=== PATIENT | female | born 1935 | race Caucasian/White ===

== ENCOUNTER → 2016-06-28 | Outpatient (CLI) | payer OTHER ==
--- NOTE | 2016-06-28 17:13 | DI ---
HISTORY: Right leg swelling and redness. TECHNIQUE: Duplex Doppler examination of the deep veins of the lower extremity was performed with co mpression. FINDINGS: Spectral Doppler demonstrates normal respiratory variation. There is an appropriate respo nse to compression maneuvers. There is no evidence of intraluminal thrombus. IMPRESSION: 1. No evidence of deep venous thrombosis.
== END ==
LOC: US 16:04
PROVIDERS: ATTEND Nurse Practitioner
DX: M79.604 Pain in right leg (principal); M79.89 Other specified soft tissue disorders
CPT/HCPCS: 93971

== ENCOUNTER → 2016-08-08 | Outpatient (CLI) | payer OTHER | LOC: MMPC 10:00 | PROVIDERS: ATTEND Podiatrist Foot & Ankle Surgery | DX: E11.40 Type 2 diabetes mellitus with diabetic neuropathy, unspecified (principal); I73.9 Peripheral vascular disease, unspecified | CPT/HCPCS: 11719; G0463 ==

== ENCOUNTER 2016-08-24 19:34 | Emergency (ER) | payer OTHER ==
[2016-08-24] MEDS ORDERED: Sodium Chloride 0.9% 1,000 ML PRIMARY IV ONE ×2 (20:03→21:25)
[2016-08-24] MEDS ORDERED: NORMAL SALINE 10 ML SYRINGE FLUSH IVP PRN (20:03)
--- NOTE | 2016-08-24 20:09 | EKG ---
[address] [address] Measurements Intervals [place] Rate: 77 P: GA: 0 QRS: 71 QRSD: 83 T: 48 QT: 370 QTc: 402 Interpretive Statements ATRIAL FIBRILLATION ST CHANGES OF EARLY REPOLARIZATION ABNORMAL RHYTHM ECG Compared to ECG 04/20/2016 20:04:24 No significant changes Electronically Signed On 08-25-16 11:43:02 MDT by Ted Dale [email or web address]
[2016-08-24 20:13] LABS: BASOPHILS # (AUTO) 0.02 10*3/UL; BASOPHILS % (AUTO) 0.3 % (0-1); EOSINOPHILS # (AUTO) 0.02 10*3/UL; EOSINOPHILS % (AUTO) 0.3 % (0-8); HEMATOCRIT 37.1 % (37.0-47.0); HEMOGLOBIN 11.9 g/dL (12.0-16.0); MEAN CORPUSCULAR HEMOGLOBIN 29.4 PG (27-31); MEAN CORPUSCULAR HGB CONC 32.1 g/dL (33-37); MEAN CORPUSCULAR VOLUME 91.6 FL (81-99); MEAN PLATELET VOLUME 10.5 FL (7.4-12.2); MONOCYTES # (AUTO) 0.41 10*3/UL (0.3-0.8); MONOCYTES % (AUTO) 6.3 % (5-15); NEUTROPHILS # (AUTO) 5.05 10*3/UL; NEUTROPHILS % (AUTO) 77.5 % (50-80); RED BLOOD COUNT 4.05 10^6/uL (4.20-5.40)
[2016-08-24 20:30] LABS: CREATINE KINASE MB 4.23 NG/ML (0.00-5.00)
[2016-08-24 20:42] VITALS: RESP 16; TEMP 99.1
[2016-08-24 20:43] LABS: PLATELET MORPHOLOGY COMMENT NORMAL MORPHOLOGY (NORM); RBC MORPHOLOGY COMMENT NORMAL MORPHOLOGY (NORM); TROPONIN I < 0.012 ng/mL (< 0.040); WBC MORPHOLOGY COMMENT NORMAL MORPHOLOGY (NORM)
[2016-08-24 20:48] LABS: VENOUS PH 7.49 (7.32-7.42)
[2016-08-24 20:49] LABS: VENOUS PCO2 28.8 mmHg (45-55)
[2016-08-24 20:55] LABS: CALCIUM 9.2 mg/dL (8.7-10.7); MAGNESIUM 1.6 mg/dL (1.6-2.4); SERUM ALBUMIN 3.6 g/dL (3.5-4.8)
--- NOTE | 2016-08-24 21:50 | DI ---
HISTORY: Weakness and hypotension. COMPARISON: Comparison exam from 2009 is not very helpful. FINDINGS: The cardiac silhouette is slightly enlarged, and this is larger compared to prior exam. There is prominence of the central vasculature, and this is more prominent compared to prior exam. There is no lobar consolidation. Bibasal opacities suggest atelectasis although small effusion is no t excluded. There is kyphosis. IMPRESSION: 1. Cardiomegaly and prominent central vasculature. The findings are more prominent over the interva l.
--- NOTE | 2016-08-24 21:51 | DI ---
HISTORY: Blunt trauma to left forehead. Bruising. No reported loss of consciousness. TECHNIQUE: Unenhanced images of the brain were obtained and submitted for interpretation. FINDINGS: There is senescent change with atrophy. There is a hypodensity in the right occipital lobe reminiscent of a chronic to subacute infarct. Rec ommend correlation with MRI. There is opacification of the left maxillary sinus, which would benefit from dedicated imaging. The rest of the mastoid air cells, and paranasal sinuses are well-aerated. The basal cisterns are not effaced. There is no intracranial hemorrhage, mass effect, hydrocephalus, or significant midline shift. There is a questionable small hematoma overlying the left frontal bone. IMPRESSION: 1. No intracranial hemorrhage. MRI is recommended.
[2016-08-24 22:00] LABS: BILIRUBIN,URINE NEGATIVE (NEG); COLOR,URINE YELLOW; GLUCOSE, URINE (UA) NEGATIVE (NEG); NITRATE,URINE POSITIVE (NEG); OCCULT BLOOD,URINE NEGATIVE (NEG); PH,URINE 5.5 (5.0-8.5); PROTEIN,URINE TRACE mg/dl (NEG); UROBILINOGEN,URINE 0.2 EU/dL (0.2)
[2016-08-24 22:04] LABS: CLARITY,URINE CLEAR (CLEAR)
[2016-08-24 22:05] LABS: BACTERIA,URINE MANY; RBC,URINE 0 /hpf; URINE CASTS RARE; URINE SAMPLE TYPE CATH SPECIMEN
[2016-08-24] MEDS ORDERED: CIPROFLOXACIN 500 MG TABLET PO ONE ×2 (22:26→22:29)
[2016-08-24] MEDS ORDERED: cefTRIAXone Inj 1 GM in Sodium Chloride 0.9% 100 ML IV ONE ×2 (22:26→22:28)
--- NOTE | 2016-08-25 03:43 | PDOC ---
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 She she also has dementia. She has a DO NOT RESUSCITATE CODE STATUS.) Nurse's Notes Reviewed & Considered: Yes EMS Report Reviewed & Considered: Verbal - History of Present Illness Initial Comment: The patient is a 82 year old female who is a resident of the [facility]. Nursing staff took the patient's blood pressure tonight and found it to be low. Nursing staff then called the family, the patient's son and daughter, who asked that the patient be brought to the emergency room for evaluation. Patient has not had any fevers or chills. She has not complained of any head chest or abdominal pain. No GI or symptoms. Patient did strike her left forehead on some furniture in her room a few days ago and patient does have a contusion to her left frontal area. Family states that the patient has not been eating or drinking well at the skilled nursing and that she has periods of combativeness and confusion. Have you received a tetanus shot in the past 10 years?: Yes Body Location Affected: REPORTS: Head (Contusion left forehead), Other (Low blood pressure per nursing staff.) Timing: REPORTS: Intermittent Duration: <24 hours Severity: Moderate Quality: REPORTS: Other (No apparent pain anywhere) Context: REPORTS: Recent Trauma (Left forehead) Modifying Factors: improves with: Nothing Similar Symptoms Previously: Yes Recent Care Received: REPORTS: Recently Seen (As above; CVA March 2016), Treated by MD, Hospitalized Any Prior Injuries Related to Current Complaint?: Yes (possibly recent head trauma as above) - Patient Home Medications Home Medications: Home Medications Allopurinol 1 tab ORAL QD #90 tab 04/15/16 Cholecalciferol (Vitamin D3) [Vitamin D3] 1 cap PO QD #90 cap 04/15/16 Lisinopril 1 tab PO BID #180 tab 04/15/16 Lovastatin 1 tab ORAL QHS #90 tab 04/15/16 Metoprolol Tartrate 1 tab ORAL BID #180 tab 04/15/16 Amlodipine Besylate [Norvasc] 10 mg PO DAILY tab 05/08/16 Apixaban [Eliquis] 2.5 mg PO BID tablet 05/08/16 Calcium/Vit D 600mg/400u Tab [Calcium 600mg + D 400u Tab] 1 tab PO DAILY tab Rivastigmine 4.6mg Patch [Exelon 4.6mg Patch] 1 patch TRANSDERM DAILY patch Melatonin 1 tab PO QHS tab 05/14/16 Quetiapine Fumarate [Seroquel] 1 tab-cap PO QHS tab 05/19/16 Lorazepam 0.5 mg PO ONCE #1 mg 08/22/16 Ciprofloxacin HCl [Cipro HCl] 500 mg PO Q12H #19 tab 08/24/16 - Patient Allergies Allergies/Adverse Reactions: Allergies Allergy/AdvReac Type Severity Reaction Status Date / Time No Known Drug Allergies Allergy NOT Verified 08/24/16 20:02 APPLICABLE Past Medical History - heen HEENT History: Blindness, Cataracts, Dentures/Partials Cardiovascular History: Hypertension, Other (please comment) Additional Cardiovasular History: A FIB/ ON Eliquis Respiratory History: Denies History Gastrointestinal History: GERD Genitourinary History: Denies History Endocrine History: Type 2 Diabetes (oral) Musculoskeletal History: Arthritis, Gout, Joint Pain, Osteoarthritis Prosthesis or Implant: Yes Neurological History: CVA Blood Disorders: Denies History Psychiatric History: Other (please comment) Additional Psychiatric History: Dementia with behavioral disturbance. Insomnia History of Sexually Transmitted Diseases: No Cancer History: Denies History In Past Year Been Physically Harmed or Verbally Threatened: No History of MDRO: Unknown History of Other Communicable Diseases: No Tobacco Use: Former Smoker Alcohol Use: None Substance Use Type: None Previous Surgical History: Yes Type / Date of Surgery: B KNEES, R HIP, HYSTERECTOMY,SHOULDER Anesthesia Reactions: No Malignant Hyperthermia: No Significant Family History: Asthma, Heart disease, Cancer, COPD, Hypertension Past Medical History Reviewed: Reviewed - No Changes ROS - Limitations ROS Limitations: Clinical Condition (Chronic cognitive impairment and dementia) Constitution: REPORTS: Denies Symptoms Cardiovascular: REPORTS: Denies Cardiac Symptoms Respiratory: REPORTS: Denies Resp Symptoms Neurological: REPORTS: Confusion (Chronic) Gastrointestinal: REPORTS: Denies GI Symptoms Endocrine: REPORTS: Denies Symptoms Musculoskeletal: REPORTS: Denies MS Symptoms Genitourinary: REPORTS: Denies Symptoms Eyes: REPORTS: Denies Symptoms ENT: REPORTS: Denies Symptoms Skin: REPORTS: Other (Contusion left forehead) Lympathic: REPORTS: Denies Lympathic Symptoms Immunologic: POSITIVE: Denies Symptoms Psychiatric: POSITIVE: Confusion (Chronically) General Adult Exam - General Appearance General Appearance: POSITIVE: Cooperative, No Acute Distress. NEGATIVE: No Evidence of Trauma (Contusion left forehead) - HEENT HEENT: POSITIVE: Eyes Inspection Nml, Ears Inspection Nml, Nose Inspection Nml, Oral/Dental Inspect. Nml, Pharynx Inspect. Nml, PERRL, EOMI. NEGATIVE: Head Inspection Nml (Contusion left forehead) - Pupils Pupil Size: 3 mm: Bilateral - Neck Neck: POSITIVE: Normal Inspection, Thyroid Normal - Respiratory Respiratory: POSITIVE: No Respiratory Distress, Breath Sounds Normal, Chest Non- Tender - Cardiovascular Cardiovascular: POSITIVE: No Murmur, No Gallop, PMI Normal, Irregularly Irreg. Rhythm (History of atrial fibrillation; electrocardiogram shows atrial fibrillation with a controlled ventricular response). NEGATIVE: Regular Rate & Rhythm, Decreased Pulse, No Pulse, Tachycardia, Occasional Extrasystoles, Frequent Extrasystoles, PMI Displaced Laterally, JVD Present, Murmur, S3 Gallop , S4 Gallop, Bradycardia, Friction Rub Peripheral Pulses: Radial (R): 2+, Radial (L): 2+ - Abdomen Abdomen: Soft: (All Quadrants), Normal Bowel Sounds: (All Quadrants), Denies Tenderness: (All Quadrants), No Splenomegaly: (All Quadrants), No Hepatomegaly: (All Quadrants), No Guarding: (All Quadrants), No Rebound: (All Quadrants), No Palpable Pulse: (All Quadrants), No Palpabale Mass: (All Quadrants), No Distention: (All Quadrants), No Rigidity: (All Quadrants) - Back Back: POSITIVE: Normal Inspection - Skin Skin: POSITIVE: Normal Color, Warm, Dry, No Rash - Extremities Extremity: Non-Tender: (All Extremities), Normal ROM: (All Extremities), Normal Inspection: (All Extremities) - Neurological / Psychological Neurological: POSITIVE: 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 NEGATIVE: Oriented X3 (Confused to date. Identifies family members well.) Images - Head Head: 1 - Contusion General Adult Progress - Results Reviewed by me Xrays/CTs/US Reviewed by me: Yes Discussed with Radiologist: Yes Radiology Findings: Chest x-ray shows no infiltrates. CT scan head shows hypodensity right occipital lobe compatible with chronic infarct. Lab Results Reviewed: Yes (BUNs 42; some white blood cells on catheterized urine specimen) Lab Results:: Laboratory Results 08/24/16 08/24/16 08/24/16 Range/Units 20:03 20:09 20:43 WBC 6.51 (4.8-10.8) 10^3/uL RBC 4.05 L (4.20-5.40) 10^6/uL Hgb 11.9 L (12.0-16.0) g/dL Hct 37.1 (37.0-47.0) % MCV 91.6 (81-99) FL MCH 29.4 (27-31) PG MCHC 32.1 L (33-37) g/dL RDW Std Deviation 47.4 (39-50) fL RDW Coeff of Darrick 14.6 H (11.5-14.5) % Plt Count 303 (140-350) 10*3/uL MPV 10.5 (7.4-12.2) FL Immature Gran % (Auto) 0.2 (0-5) % Neut % (Auto) 77.5 (50-80) % Lymph % (Auto) 15.4 (10-50) % [place] % (Auto) 6.3 (5-15) % Eos % (Auto) 0.3 (0-8) % Baso % (Auto) 0.3 (0-1) % Immature Gran # (Auto) 0.01 10*3/UL Neut # (Auto) 5.05 10*3/UL Lymph # (Auto) 1.00 10*3/uL [place] # (Auto) 0.41 (0.3-0.8) 10*3/UL Eos # (Auto) 0.02 10*3/UL Baso # (Auto) 0.02 10*3/UL WBC Morphology Comment Normal morphology (NORM) Plt Morphology Comment Normal morphology (NORM) RBC Morph Comment Normal morphology (NORM) VBG pH 7.49 H (7.32-7.42) VBG pCO2 28.8 L (45-55) mmHg VBG HCO3 22.1 (22-26) mmol/L VBG Base Excess -1 (-2-2) MMOL/L Sodium 135 (135-145) meq/L Potassium 4.8 (3.8-5.2) meq/L Chloride 104 (98-112) meq/L Carbon Dioxide 22 L (23-33) meq/L Anion Gap 9 (5-20) BUN 42 H (7-22) mg/dL Creatinine 1.2 (0.50-1.20) mg/dL Estimated GFR (>60 ml/min/1.73m(2)) BUN/Creatinine Ratio 35.00 H (6-20) Glucose 143 H (78-110) mg/dL Calculated Osmolality 292.0 (267-292) mOsm/kg Lactic Acid 0.7 (0.70-2.10) MMOL/L Calcium 9.2 (8.7-10.7) mg/dL Magnesium 1.6 (1.6-2.4) mg/dL Total Bilirubin 0.7 (0.3-1.2) mg/dL AST 25 (8-39) IU/L ALT 24 (9-52) IU/L Alkaline Phosphatase 65 (38-126) IU/L Total Creatine Kinase 138 H (30-136) IU/L CK-MB (CK-2) 4.23 (0.00-5.00) NG/ML Troponin I < 0.012 (< 0.040) ng/mL Total Protein 6.2 (6.1-8.0) g/dL Albumin 3.6 (3.5-4.8) g/dL Globulin 2.6 (2.50-4.10) g/dL Albumin/Globulin Ratio 1.30 (1.3-2.0) mg/g Ur Collection Type Urine Color Urine Clarity (CLEAR) Urine pH (5.0-8.5) Ur Specific [place] (1.005-1.030) Urine Protein (NEG) mg/dl Urine Glucose (UA) (NEG) mg/dL Urine Ketones (NEG) Urine Occult Blood (NEG) Urine Nitrate (NEG) Urine Bilirubin (NEG) Urine Urobilinogen (0.2) EU/dL Ur Leukocyte Esterase (NEG) Urine RBC (NONE) /hpf Urine WBC (NONE) Ur Squamous Epith Cells (NONE) Ur Renal Epithelial Cell (NONE) Urine Crystals Urine Bacteria (NONE) Urine Casts (NONE) Urine Mucus (NONE) Urine Trichomonas (NONE) Urine Yeast (NONE) Ur Culture Indicated? 08/24/16 Range/Units 22:02 WBC (4.8-10.8) 10^3/uL RBC (4.20-5.40) 10^6/uL Hgb (12.0-16.0) g/dL Hct (37.0-47.0) % MCV (81-99) FL MCH (27-31) PG MCHC (33-37) g/dL RDW Std Deviation (39-50) fL RDW Coeff of Darrick (11.5-14.5) % Plt Count (140-350) 10*3/uL MPV (7.4-12.2) FL Immature Gran % (Auto) (0-5) % Neut % (Auto) (50-80) % Lymph % (Auto) (10-50) % [place] % (Auto) (5-15) % Eos % (Auto) (0-8) % Baso % (Auto) (0-1) % Immature Gran # (Auto) 10*3/UL Neut # (Auto) 10*3/UL Lymph # (Auto) 10*3/uL [place] # (Auto) (0.3-0.8) 10*3/UL Eos # (Auto) 10*3/UL Baso # (Auto) 10*3/UL WBC Morphology Comment (NORM) Plt Morphology Comment (NORM) RBC Morph Comment (NORM) VBG pH (7.32-7.42) VBG pCO2 (45-55) mmHg VBG HCO3 (22-26) mmol/L VBG Base Excess (-2-2) MMOL/L Sodium (135-145) meq/L Potassium (3.8-5.2) meq/L Chloride (98-112) meq/L Carbon Dioxide (23-33) meq/L Anion Gap (5-20) BUN (7-22) mg/dL Creatinine (0.50-1.20) mg/dL Estimated GFR (>60 ml/min/1.73m(2)) BUN/Creatinine Ratio (6-20) Glucose (78-110) mg/dL Calculated Osmolality (267-292) mOsm/kg Lactic Acid (0.70-2.10) MMOL/L Calcium (8.7-10.7) mg/dL Magnesium (1.6-2.4) mg/dL Total Bilirubin (0.3-1.2) mg/dL AST (8-39) IU/L ALT (9-52) IU/L Alkaline Phosphatase (38-126) IU/L Total Creatine Kinase (30-136) IU/L CK-MB (CK-2) (0.00-5.00) NG/ML Troponin I (< 0.040) ng/mL Total Protein (6.1-8.0) g/dL Albumin (3.5-4.8) g/dL Globulin (2.50-4.10) g/dL Albumin/Globulin Ratio (1.3-2.0) mg/g Ur Collection Type Cath specimen Urine Color Yellow Urine Clarity Clear (CLEAR) Urine pH 5.5 (5.0-8.5) Ur Specific [place] 1.015 (1.005-1.030) Urine Protein Trace (NEG) mg/dl Urine Glucose (UA) Negative (NEG) mg/dL Urine Ketones Trace (NEG) Urine Occult Blood Negative (NEG) Urine Nitrate Positive H (NEG) Urine Bilirubin Negative (NEG) Urine Urobilinogen 0.2 (0.2) EU/dL Ur Leukocyte Esterase Small (NEG) Urine RBC 0 (NONE) /hpf Urine WBC 8-10 (NONE) Ur Squamous Epith Cells None (NONE) Ur Renal Epithelial Cell None (NONE) Urine Crystals None Urine Bacteria Many (NONE) Urine Casts Rare (NONE) Urine Mucus None (NONE) Urine Trichomonas None (NONE) Urine Yeast None (NONE) Ur Culture Indicated? Culture set EKG Interpreted/Reviewed By Me:: Yes EKG Interpretation:: POSITIVE: Normal Rate, Normal Intervals, Normal [place], Normal QRS, Normal ST/T. NEGATIVE: Abnormal EKG (Atrial fibrillation with controlled ventricular response) - Patient's Progress Pain Medication Addressed: POSITIVE: Not Applicable School/Work Release Addressed: POSITIVE: Not Applicable Re-Examine Time: 23:00 Re-Examine Comment: Patient hydrated with almost 2 L of normal saline. Blood pressure 116/81 at that time. Patient also given a gram of Rocephin for her urinary tract infection. Alternatives of treatment discussed with the patient, the patient's family and the [facility]. Patient is adamant that she does not want to be admitted. Patient is improved after hydration and I think her hypotension was due to dehydration due to poor oral intake. group home staff advised to make sure patient drinks 6-8 glasses of water per day and eats her meals. Cipro, one twice daily for 10 days. To follow-up with her primary care provider this coming Friday. Status: POSITIVE: Improved, Re-Examined Antibiotics Given: Yes (Rocephin IV and then Cipro by mouth) - Consult Counseled: POSITIVE: Patient, Family, RE: Lab Results, RE: Radiology Results, RE : DX, RE: Need for F/U Patient Care Time - Estimated PCT Patient Care Time (In Minutes): 60 Vital Signs - Recent Vital Signs Vital Signs: Vital Signs (Last 8 hours) Temp Pulse Resp BP Pulse Ox 08/24/16 22:20 116/81 08/24/16 20:03 99.1 F 80 16 82/67 92 - VS Reviewed Vital Signs Reviewed: Yes Discharge Clinical Impression: Dehydration, Urinary tract infection Discharge Disposition: Discharged to Home Condition: Stable Prescriptions / Orders: Ciprofloxacin HCl [Cipro HCl] 500 mg PO Q12H #19 tab Patient Instructions Given at Discharge: Dehydration (ED), Urinary Tract Infection in Women (ED) Additional Instructions: I believe the low blood pressure that you had at the skilled nursing is due mainly to dehydration. Your blood pressure is normal, now that we have rehydrated you. Please make sure you eat all your meals hand take at least 6 glasses of fluid daily. You are also incidentally found to have a bladder infection. We' ll treat this with Cipro, one twice daily. Follow-up with Dr. Isabel Friday. Return here anytime if condition worsens in any way whatsoever. Follow Up With: VEDA ISABEL [Primary Care Provider] - (Instructions as above. Return here as necessary.)
== END 2016-08-24 23:35 ==
LOC: ER 19:34
DX: E86.0 Dehydration (principal); E11.9 Type 2 diabetes mellitus without complications; N39.0 Urinary tract infection, site not specified; S00.83XA Contusion of other part of head, initial encounter; W22.8XXA Striking against or struck by other objects, initial encounter; Y92.129 Unspecified place in nursing home as the place of occurrence of the external cause
CPT/HCPCS: 36415; 70450; 71020; 80053; 81001; 81003; 82550; 82553; 82803; 83605; 83735; 84484; 85025; 87077; 87088; 87186; 93005; 93010; 96361; 96365; 99284; J0696; J7050

== ENCOUNTER 2016-08-30 11:20 | Emergency (ER) | payer OTHER ==
[2016-08-30] MEDS ORDERED: NORMAL SALINE 10 ML SYRINGE FLUSH IVP PRN (11:51)
[2016-08-30 12:05] VITALS: RESP 18; TEMP 97.2
[2016-08-30 12:07] LABS: BASOPHILS # (AUTO) 0.04 10*3/UL; BASOPHILS % (AUTO) 0.4 % (0-1); EOSINOPHILS # (AUTO) 0.19 10*3/UL; EOSINOPHILS % (AUTO) 2.1 % (0-8); HEMATOCRIT 38.9 % (37.0-47.0); HEMOGLOBIN 12.2 g/dL (12.0-16.0); MEAN CORPUSCULAR HEMOGLOBIN 29.3 PG (27-31); MEAN CORPUSCULAR HGB CONC 31.4 g/dL (33-37); MEAN CORPUSCULAR VOLUME 93.5 FL (81-99); MEAN PLATELET VOLUME 9.5 FL (7.4-12.2); MONOCYTES % (AUTO) 7.6 % (5-15); NEUTROPHILS # (AUTO) 7.48 10*3/UL; NEUTROPHILS % (AUTO) 80.9 % (50-80); RED BLOOD COUNT 4.16 10^6/uL (4.20-5.40)
[2016-08-30] MEDS ORDERED: MORPHINE SULFATE 4 MG/1 ML IVP ONE (12:07)
[2016-08-30 12:08] LABS: PLATELET MORPHOLOGY COMMENT NORMAL MORPHOLOGY (NORM); RBC MORPHOLOGY COMMENT NORMAL MORPHOLOGY (NORM); WBC MORPHOLOGY COMMENT NORMAL MORPHOLOGY (NORM)
[2016-08-30 12:21] LABS: BUN/CREATININE RATIO 31.81 (6-20); CALCIUM 9.4 mg/dL (8.7-10.7); SERUM ALBUMIN 3.8 g/dL (3.5-4.8)
--- NOTE | 2016-08-30 13:16 | DI ---
AP PELVIS and RIGHT HIP, 08/30/2016 10:52 AM: Clinical History: Trauma. Previous Exam: None at this facility. There is no soft tissue abnormality. The bony structures of the pelvis are normal. 2 views of the rig ht hip show the patient to be status post total right hip replacement. The prosthetic device articula darien normally. There is no evidence of loosening of the prosthesis. There is no fracture of the proxim al femur noted. There is osteoporosis. Readin. Status post total right hip replacement. The prosthetic device articulates normally. There is no evidence of a fracture of the proximal femur. 2. The AP pelvis view is unremarkable. Osteoporosis. If symptoms persist at the affected site, then follow-up films are recommended in 7-10 days.
--- NOTE | 2016-08-30 13:16 | DI ---
RIGHT KNEE, 08/30/2016 10:52 AM: Clinical History: Trauma. Previous Exam: 03/17/2007. 3 views are submitted. The patient is status post total right knee replacement. The prosthetic device articulates normally and there is no evidence of loosening of the prosthesis. On the sunrise view, t here is a bony density between the metallic component over the medial femoral condyle and the medial aspect of the patella. This probably represents heterotopic bone formation. Reading: Status post total right knee replacement. The prosthetic device articulates normally and there is no evidence of a fracture or loosening of the prosthesis.
[2016-08-30] MEDS ORDERED: HYDROcodone-APAP 5 MG -325 MG TABLET PO SCH (14:15)
--- NOTE | 2016-08-30 21:40 | PDOC ---
Lower Extremity Injury HPI - General Chief Complaint: Lower Extremity Problem/Injury Stated Complaint: RIGHT KNEE PAIN AFTER FALL Date Seen by Provider: 08/30/16 Time Seen by Provider: 11:35 Source: POSITIVE: Patient, [facility] records, Other (Daughter) Exam Limitations: POSITIVE: No limitations Nurse's Notes Reviewed & Considered: Yes - History of Present Illness Initial Comments: The patient is an 81-year-old female who is a resident of the [facility]. She has a history of dementia and arthritis. She also has a history of hypertension, atrial fibrillation, type II diabetes mellitus. She's had a right total knee and a right hip replacement. Patient apparently fell at the residential, injuring her right knee. Instant occurred approximately 1-1/2 hours [employer]. Patient is on Ahlquist for her atrial fibrillation, according to her medical records. Have you received a tetanus shot in the past 10 years?: Unknown Body Location Affected: REPORTS: Lower Extremity (R) (Right knee) Timing: REPORTS: Abrupt Duration: 1-3 hours (Reportedly one and a half hours [employer] patient fell at the residential.) Severity: Moderate Quality: REPORTS: "Pain" (Right knee) Location at Time of Onset: REPORTS: Other ([facility]) Context of Injury: REPORTS: Fall, Twist Location of Injury: REPORTS: Knee (R) Modifying Factors: improves with: Walking, Movement Associated Symptoms: REPORTS: Unable to Bear Weight. DENIES: Snapping, Popping Sensation, Became Dizzy, Fainted, Seizure, Other Any Prior Injuries Related to Current Complaint?: Yes (as above) - Patient Home Medications Home Medications: Home Medications Allopurinol 1 tab ORAL QD #90 tab 04/15/16 Cholecalciferol (Vitamin D3) [Vitamin D3] 1 cap PO QD #90 cap 04/15/16 Lisinopril 1 tab PO BID #180 tab 04/15/16 Lovastatin 1 tab ORAL QHS #90 tab 04/15/16 Metoprolol Tartrate 1 tab ORAL BID #180 tab 04/15/16 Amlodipine Besylate [Norvasc] 10 mg PO DAILY tab 05/08/16 Apixaban [Eliquis] 2.5 mg PO BID tablet 05/08/16 Calcium/Vit D 600mg/400u Tab [Calcium 600mg + D 400u Tab] 1 tab PO DAILY tab Rivastigmine 4.6mg Patch [Exelon 4.6mg Patch] 1 patch TRANSDERM DAILY patch Melatonin 1 tab PO QHS tab 05/14/16 Quetiapine Fumarate [Seroquel] 0.5 tab-cap PO QHS tab 05/19/16 Lorazepam 0.5 mg PO ONCE #1 mg 08/22/16 Ciprofloxacin HCl [Cipro HCl] 500 mg PO Q12H #19 tab 08/24/16 HYDROcodone/APAP 5/325 Tab [Ames 5/325 Tab] 1 each PO Q6H PRN #20 tablet - Patient Allergies Allergies/Adverse Reactions: Allergies Allergy/AdvReac Type Severity Reaction Status Date / Time No Known Drug Allergies Allergy NOT Verified 08/30/16 11:44 APPLICABLE Past Medical History - heen HEENT History: Blindness, Cataracts, Dentures/Partials Cardiovascular History: Hypertension, Other (please comment) Additional Cardiovasular History: A FIB/ ON Eliquis Respiratory History: Denies History Gastrointestinal History: GERD Genitourinary History: Denies History Endocrine History: Type 2 Diabetes (oral) Musculoskeletal History: Arthritis, Gout, Joint Pain, Osteoarthritis Prosthesis or Implant: Yes Neurological History: CVA Blood Disorders: Denies History Psychiatric History: Other (please comment) Additional Psychiatric History: Dementia with behavioral disturbance. Insomnia History of Sexually Transmitted Diseases: No Cancer History: Denies History In Past Year Been Physically Harmed or Verbally Threatened: No History of MDRO: Unknown History of Other Communicable Diseases: No Tobacco Use: Former Smoker Alcohol Use: None Substance Use Type: None Previous Surgical History: Yes Type / Date of Surgery: SOCORRO TKR, R HIP REPLACEMENT, HYSTERECTOMY, SHOULDER Anesthesia Reactions: No Malignant Hyperthermia: No Significant Family History: Asthma, Heart disease, Cancer, COPD, Hypertension Past Medical History Reviewed: Reviewed - No Changes ROS - Limitations ROS Limitations: Mental Impairment (Dementia) Constitution: REPORTS: Denies Symptoms Cardiovascular: REPORTS: Denies Cardiac Symptoms Respiratory: REPORTS: Denies Resp Symptoms Neurological: REPORTS: Denies Neuro Symptoms Gastrointestinal: REPORTS: Denies GI Symptoms Endocrine: REPORTS: Denies Symptoms Musculoskeletal: REPORTS: Joint Pain (Right knee pain), Recent Injury (As above) . DENIES: Back Pain, Calf Pain, Lower Extremity Swelling, Muscle Aches, Neck Pain, Pedal Edema Genitourinary: REPORTS: Denies Symptoms Eyes: REPORTS: Denies Symptoms ENT: REPORTS: Denies Symptoms Skin: REPORTS: Denies Skin Symptoms Lympathic: REPORTS: Denies Lympathic Symptoms Immunologic: POSITIVE: Denies Symptoms Psychiatric: POSITIVE: Denies Psych Symptoms Lower Ext Complaint Exam - General Appearance General Appearance: POSITIVE: Alert, Cooperative. NEGATIVE: No Acute Distress ( Discomfort expressed on movement of right knee and on palpation of right knee), No Evidence of Trauma - Extremities Lower Extremity: POSITIVE: Normal Color, Normal Temperature, Skin Intact, No Joint Swelling, No Evidence of Ischemia, Stable, Soft Tissue Tenderness, Bony Tenderness, Limited ROM (Due to pain), See Diagram. NEGATIVE: Swelling, Ecchymosis, Erythema, Deformity, Pulse Deficit, Laxity of Ligaments, Joint Effusion, Hip Pain on Leg Movement Lower Extremity Ligament: POSITIVE: Pain on Medial Stress, Pain on Lateral Stress Gait: POSITIVE: Gait not Tested d/t Pain Neurovascular/Tendon: POSITIVE: Sensation Normal, Motor Normal, No Vascular Compromise Skin: POSITIVE: Warm, Dry - Neck / Back Neck/Back: POSITIVE: Normal Inspection, Non-Tender, Painless ROM - Respiratory / CVS Respiratory / CVS: POSITIVE: Chest Non Tender, No Ecchymosis, Breath Sounds Normal, No Respiratory Distress, Heart Sounds Normal, Regular Rate/Rhythm Peripheral Pulses: Radial (R): 2+, Radial (L): 2+, Dorsalis-pedis (R): 2+, Dorsalis-pedis (L): 2+ - Abdomen Abdomen: Soft: (All Quadrants), Normal Bowel Sounds: (All Quadrants), Denies Tenderness: (All Quadrants), No Splenomegaly: (All Quadrants), No Hepatomegaly: (All Quadrants), No Guarding: (All Quadrants), No Rebound: (All Quadrants), No Palpable Pulse: (All Quadrants), No Palpabale Mass: (All Quadrants), No Distention: (All Quadrants), No Rigidity: (All Quadrants) Images - Lower Extremities Lower Extremities: 1 - Pain on palpation. No deformity. No sensory motor or vascular deficits. Pain on flexion. Procedures - Splinting Time Splint Applied: 13:20 Location: Neal wrap applied to right knee Pre-Proc Neuro Vasc Exam: Normal Splint Type: Neal Wrap Splint Form: Other (Neal wrap) Applied By:: Nurse Post-Proc Neuro Vasc Exam: Normal Lower Ext Complaint Progress - Results Reviewed by me Xrays/CTs/US Reviewed by me: Yes Discussed with Radiologist: Yes Radiology Findings: X-ray right knee and right hip shows no fractures or dislocations; status post total right knee and total right hip replacement Lab Results Reviewed: Yes Lab Results:: Laboratory Results 08/30/16 Range/Units 12:04 WBC 9.25 (4.8-10.8) 10^3/uL RBC 4.16 L (4.20-5.40) 10^6/uL Hgb 12.2 (12.0-16.0) g/dL Hct 38.9 (37.0-47.0) % MCV 93.5 (81-99) FL MCH 29.3 (27-31) PG MCHC 31.4 L (33-37) g/dL RDW Std Deviation 48.0 (39-50) fL RDW Coeff of Darrick 14.7 H (11.5-14.5) % Plt Count 290 (140-350) 10*3/uL MPV 9.5 (7.4-12.2) FL Immature Gran % (Auto) 0.4 (0-5) % Neut % (Auto) 80.9 H (50-80) % Lymph % (Auto) 8.6 L (10-50) % [place] % (Auto) 7.6 (5-15) % Eos % (Auto) 2.1 (0-8) % Baso % (Auto) 0.4 (0-1) % Immature Gran # (Auto) 0.04 10*3/UL Neut # (Auto) 7.48 10*3/UL Lymph # (Auto) 0.80 10*3/uL [place] # (Auto) 0.70 (0.3-0.8) 10*3/UL Eos # (Auto) 0.19 10*3/UL Baso # (Auto) 0.04 10*3/UL WBC Morphology Comment Normal morphology (NORM) Plt Morphology Comment Normal morphology (NORM) RBC Morph Comment Normal morphology (NORM) PT 11.8 H (9.7-11.4) secs INR 1.14 (0.00-5.90) N/A Sodium 140 (135-145) meq/L Potassium 3.9 (3.8-5.2) meq/L Chloride 107 (98-112) meq/L Carbon Dioxide 22 L (23-33) meq/L Anion Gap 11 (5-20) BUN 35 H (7-22) mg/dL Creatinine 1.1 (0.50-1.20) mg/dL Estimated GFR (>60 ml/min/1.73m(2)) BUN/Creatinine Ratio 31.81 H (6-20) Glucose 100 (78-110) mg/dL Calculated Osmolality 297.0 H (267-292) mOsm/kg Calcium 9.4 (8.7-10.7) mg/dL Total Bilirubin 0.8 (0.3-1.2) mg/dL AST 33 (8-39) IU/L ALT 44 D (9-52) IU/L Alkaline Phosphatase 67 (38-126) IU/L Total Protein 6.3 (6.1-8.0) g/dL Albumin 3.8 (3.5-4.8) g/dL Globulin 2.5 (2.50-4.10) g/dL Albumin/Globulin Ratio 1.50 (1.3-2.0) mg/g - Patient's Progress Pain Medication Addressed: POSITIVE: Yes (Hydrocodone/APAP, one every 6 hours as necessary for pain) School/Work Release Addressed: POSITIVE: Not Applicable Re-Examine Time:: 13:20 Re-Examine Comment: Disposition discussed with residential staff. Recommended bed rest for a few days and then gradually introducing weightbearing. Follow- up with her primary care provider and orthopedist. Status: POSITIVE: Unchanged, Re-Examined - Consult Counseled: POSITIVE: Patient, Family, RE: Lab Results, RE: Radiology Results, RE : DX, RE: Need for F/U Patient Care Time - Estimated PCT Patient Care Time (In Minutes): 40 Vital Signs - VS Reviewed Vital Signs Reviewed: Yes Discharge Clinical Impression: Knee sprain Discharge Disposition: Discharged to Home Condition: Stable Prescriptions / Orders: HYDROcodone/APAP 5/325 Tab [Ames 5/325 Tab] 1 each PO Q6H PRN #20 tablet PRN Reason: Pain Patient Instructions Given at Discharge: Knee Sprain (ED) Additional Instructions: Neal wrap to right knee. Bed rest for 3 or 4 days, and then up as tolerated. Hydrocodone/APAP, one every 6 hours as necessary for pain. Follow-up with your primary care provider and orthopedist. Return here anytime if condition worsens. Follow Up With: VEDA ISABEL [Primary Care Provider] - (Instructions as above. Follow-up with your primary care provider and orthopedist. Return here anytime if condition worsens in any way.)
== END 2016-08-30 14:25 | disposition home or self-care (01) ==
LOC: ER 11:20
DX: S83.91XA Sprain of unspecified site of right knee, initial encounter (principal); F03.91 Unspecified dementia, unspecified severity, with behavioral disturbance; I48.91 Unspecified atrial fibrillation; E11.9 Type 2 diabetes mellitus without complications; Z79.01 Long term (current) use of anticoagulants; W01.0XXA Fall on same level from slipping, tripping and stumbling without subsequent striking against object, initial encounter
CPT/HCPCS: 73502; 73562; 80053; 85025; 85610; 96374; 99283; J2270

== ENCOUNTER → 2016-09-06 | Outpatient (CLI) | payer OTHER ==
--- NOTE | 2016-09-06 16:30 | DI ---
VENOUS DOPPLER ULTRASOUND OF THE RIGHT LOWER EXTREMITY, 09/06/2016 1:47 PM: Clinical History: Right leg pain. The patient fell. Previous Exam: 06/28/2016. Technique: 2D real-time imaging is supplemented with color Doppler ultrasound. Compression and augmen tation maneuvers were performed. The deep venous system from the groin to the popliteal fossa is norm al. The greater saphenous vein is normal. Reading: Negative venous Doppler ultrasound of the right lower extremity. There has been no interval change.
== END ==
LOC: US 13:39
PROVIDERS: ATTEND Internal Medicine
DX: M79.604 Pain in right leg (principal); W19.XXXA Unspecified fall, initial encounter
CPT/HCPCS: 93971

== ENCOUNTER → 2016-10-17 | Outpatient (CLI) | payer OTHER | LOC: MMPC 11:11 | PROVIDERS: ATTEND Internal Medicine | DX: I48.91 Unspecified atrial fibrillation (principal); I10 Essential (primary) hypertension; R41.3 Other amnesia; I63.8 Other cerebral infarction | CPT/HCPCS: 99213; G0463 ==

== ENCOUNTER 2016-12-18 16:40 | Emergency (ER) | payer OTHER ==
--- NOTE | 2016-12-18 18:50 | PDOC ---
Upper Ext Injury HPI - General Chief Complaint: Upper Extremity Problem/Injury Stated Complaint: LEFT HAND INJURY Date Seen by Provider: 12/18/16 Time Seen by Provider: 18:15 - History of Present Illness Initial Comments: Patient's very nice 81-year-old woman who unfortunate suffers from advanced Alzheimer's disease and [facility]. She apparently was hitting the wall with her left hand today and caused a bruise on her left hand. There is concerned she may have a fracture there so she is brought to the emergency department for evaluation. Patient is unable to give me any history however the staff member that comes with her says that the story that he had gotten was that she was indeed hitting the wall and that she had bruising after she was doing this. Have you received a tetanus shot in the past 10 years?: Unknown - Patient Home Medications Home Medications: Home Medications Allopurinol 1 tab ORAL QD #90 tab 04/15/16 Cholecalciferol (Vitamin D3) [Vitamin D3] 1 cap PO QD #90 cap 04/15/16 Lovastatin 1 tab ORAL QHS #90 tab 04/15/16 Metoprolol Tartrate 1 tab ORAL BID #180 tab 04/15/16 Amlodipine Besylate [Norvasc] 10 mg PO DAILY tab 05/08/16 Apixaban [Eliquis] 2.5 mg PO BID tablet 05/08/16 Calcium/Vit D 600mg/400u Tab [Calcium 600mg + D 400u Tab] 1 tab PO DAILY tab Melatonin 1 tab PO QHS tab 05/14/16 Hydrocortisone 1 applic TD QD tube 09/07/16 Hydrocodone/Acetaminophen [Hydrocodon-Acetaminophen 5-325] 1 each PO Q8H PRN # 20 tablet 09/18/16 Acetaminophen [Tylenol] 2 tab PO Q4H PRN tab 09/20/16 Nicotine [Nicoderm Cq] 1 patch TRANSDERM DAILY #30 patch 09/21/16 Fentanyl 12 mcgh TRANSDERM Q72H patch 09/24/16 Lisinopril 1 tab PO QD #180 tab 10/01/16 Omeprazole 1 cap PO DAILY #90 cap 10/01/16 Ondansetron HCl [Zofran] 4 mg PO Q8H PRN #30 tab 10/01/16 - Patient Allergies Allergies/Adverse Reactions: Allergies Allergy/AdvReac Type Severity Reaction Status Date / Time No Known Drug Allergies Allergy NOT Verified 08/30/16 11:44 APPLICABLE Past Medical History - heen HEENT History: Blindness, Cataracts, Dentures/Partials Cardiovascular History: Hypertension, CHF, Other (please comment) Additional Cardiovasular History: A FIB/ ON Eliquis Respiratory History: Denies History Gastrointestinal History: GERD Genitourinary History: Denies History Endocrine History: Type 2 Diabetes (oral) Musculoskeletal History: Arthritis, Gout, Joint Pain, Osteoarthritis Prosthesis or Implant: Yes Neurological History: CVA Blood Disorders: Denies History Psychiatric History: Depression, Other (please comment) Additional Psychiatric History: Dementia with behavioral disturbance. Insomnia History of Sexually Transmitted Diseases: No Cancer History:  History of MDRO: Unknown History of Other Communicable Diseases: No Alcohol Use: None Substance Use Type: None Previous Surgical History: Yes Type / Date of Surgery: SOCORRO TKR, R HIP REPLACEMENT, HYSTERECTOMY, SHOULDER Anesthesia Reactions: No Malignant Hyperthermia: No Significant Family History: Asthma, Heart disease, Cancer, COPD, Hypertension Past Medical History Reviewed: Reviewed - No Changes ROS - Limitations ROS Limitations: Mental Impairment Upper Ext Injury Exam - General Appearance General Appearance: POSITIVE: No Acute Distress - Extremities Upper Extremity: POSITIVE: Other (Left upper extremity over the lateral dorsal part of her hand has an ecchymoses that approximately 2-3" x 2" with some swelling associated with it. She is moving her hand without obvious evidence of significant pain she is moving all of her fingers as well.) Upper Ext Injury Progress - Results Reviewed by me Xrays/CTs/US Reviewed by me: Yes Radiology Findings: No obvious fracture but she does have significant arthritic disease. Patient Care Time - Estimated PCT Patient Care Time (In Minutes): 20 Vital Signs - VS Reviewed Vital Signs Reviewed: Yes (vitals are benign) Discharge Clinical Impression: Hand contusion Qualifiers: Qualifier Code: (S60.222A) Contusion of left hand, initial encounter Discharge Disposition: Discharged to Home Patient Instructions Given at Discharge: Contusion in Adults (ED) Additional Instructions: Protect the hand with a dressing or wrap or splint. If the patient favors her hand increasingly over the next couple of days she may need to be reevaluated by orthopedics Follow Up With: VEDA ISABEL [Primary Care Provider] -
--- NOTE | 2016-12-18 20:04 | DI ---
XR HAND MIN 3VW,12/18/2016 5:05 PM: Clinical History: Hand pain Previous Exam: None at this facility. Findings: 3 views of the left hand are obtained, and demonstrate diffuse osteopenia. Advanced degenerative rendon ges are noted probably involving the first carpometacarpal joint. There are also degenerative changes involving the interphalangeal joints with loss of joint space and osteophyte formation. Surrounding soft tissues are unremarkable. 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
[2016-12-18 20:19] VITALS: RESP 20; TEMP 97.9
== END 2016-12-18 18:54 ==
LOC: ER 16:40
DX: S60.222A Contusion of left hand, initial encounter (principal); M19.042 Primary osteoarthritis, left hand; I48.91 Unspecified atrial fibrillation; E11.9 Type 2 diabetes mellitus without complications; I10 Essential (primary) hypertension; Z79.01 Long term (current) use of anticoagulants; W22.8XXA Striking against or struck by other objects, initial encounter
CPT/HCPCS: 73130; 99282